=== PATIENT | male | born 1990 | race Caucasian/White ===

== ENCOUNTER 2022-05-10 01:21 | Emergency (ER) | payer BC, SELFPAY ==
--- NOTE | ~2022-05-10 | CT_ITS ---
EXAMINATION: CT ANGIOGRAM OF THE CHEST WITH AND WITHOUT CONTRAST (CT PULMONARY ANGIOGRAM FOR PE) CLINICAL INFORMATION: Reason for Exam left side chest pain COMPARISON: Prior x-ray 05/10/2022 TECHNIQUE: Prior to contrast administration, noncontrast localization images were obtained. Subsequently, multidetector volumetric imaging was performed from the thoracic inlet to below the diaphragms following the administration of 80 mL Omnipaque 350 intravenous contrast. No contrast reaction reported Sagittal, coronal, and MIP oblique sagittal reformatted images were obtained on the CT workstation, uploaded to PACS, and reviewed. This CT examination was performed using dose optimization techniques as appropriate, variously including the following: *Automated exposure control *Adjustment of mA and/or kV according to patient size (this includes techniques or standardized protocols for targeted exams where dose is matched to indication/reason for exam; i.e. extremities or head) *Use of iterative reconstruction technique Total exam dose-length product 340 mGy-cm FINDINGS: QUALITY OF STUDY/CONTRAST BOLUS: Satisfactory. PULMONARY ARTERIES: No central or segmental pulmonary emboli. THORACIC AORTA: No aneurysm or dissection. LUNG: Groundglass opacities present in the lower lobes bilaterally. More dense consolidation in the lingula anteriorly and in the right middle lobe. PLEURA: No pleural effusion or pneumothorax. MEDIASTINUM: Normal heart size. No pericardial effusion. No hilar or mediastinal lymphadenopathy. No evidence of septal bowing or right heart strain. CHEST WALL/AXILLA: No axillary or internal mammary lymphadenopathy. Pectus deformity OSSEOUS STRUCTURES: No acute or suspicious osseous abnormality. UPPER ABDOMEN: Unremarkable. No reflux of contrast into the hepatic veins to suggest elevated right heart pressures. CT/CT angio chest PE protocol IMPRESSION: 1. No evidence for pulmonary embolism. 2. Groundglass opacities in the lower lobes bilaterally with more dense consolidation in the lingula and right middle lobe. Findings are nonspecific but can be seen with pneumonia or combination of pneumonia and atelectasis. 3. VTE: negative.
--- NOTE | ~2022-05-10 | XR_ITS ---
EXAMINATION: XR CHEST CLINICAL INFORMATION: Pain COMPARISON: None TECHNIQUE: 2 views of the chest were obtained. FINDINGS: Lung volumes are symmetric. There is suggestion of some central peribronchial thickening. Minimal patchy opacity is noted towards the left base. No evidence of pneumothorax or pleural effusion. The cardiomediastinal contour is unremarkable. No acute osseous findings are seen. XR/XR chest 2V IMPRESSION: Minimal patchy left basilar opacity may reflect developing consolidation in the proper clinical setting; short-term radiographic follow-up would be helpful.
[2022-05-10 01:26] VITALS: BP 132/73; PULSE 123; RESP 20; TEMP 37.1; O2SAT 97; BMI 26.3
[2022-05-10 01:38] LABS: MANUAL DIFF FLAG NO
[2022-05-10 01:39] LABS: Basophils Absolute Auto 0.1 X10*3/uL (0.0-0.2); Basophils Percent Auto 0.3 % (0-2); Eosinophils Absolute Auto 0.2 X10*3/uL (0.0-0.4); Hematocrit 46.3 % (42.0-52.0); Hemoglobin 15.6 g/dl (14.0-18.0); Imm Gran Abs Auto 0.06 X10*3/uL (0.00-0.03); Imm Gran Pct Auto 0.4 % (0.0-0.4); Lymphocytes Absolute Auto 2.6 X10*3/uL (1.2-4.9); Lymphocytes Percent Auto 15.8 % (20-40); Mean Corpuscular HGB Conc 33.7 g/dl (31.0-36.0); Mean Corpuscular Hemoglobin 29.6 pg (27.0-33.0); Mean Corpuscular Volume 87.9 fL (80.0-98.0); Mean Platelet Volume 9.7 fL (9.4-12.4); Monocytes Absolute Auto 1.2 X10*3/uL (0.1-1.2); Monocytes Percent Auto 7.4 % (2-11); Neutrophils Absolute Auto 12.2 x10*3/uL (2.0-8.3); Neutrophils Percent Auto 75.1 % (45-73); Platelet Count 266 X10*3/uL (160-400); Red Blood Count 5.27 X10*6/uL (4.60-5.80); Red Cell Distribution Width 12.1 % (11.0-16.0); White Blood Count 16.3 X10*3/uL (4.8-10.8)
[2022-05-10 01:56] LABS: Alanine Aminotransferase 19 U/L (0-40); Albumin Level 4.5 g/dL (3.5-5.0); Alkaline Phosphatase 94 U/L (39-117); Anion Gap 17 (12-20); Aspartate Amino Transferase 17 U/L (5-37); Bilirubin Total 0.6 mg/dL (0.0-1.0); Blood Urea Nitrogen 17 mg/dL (9-16); Calcium 9.7 mg/dL (8.4-10.2); Carbon Dioxide 25 mmol/L (22-29); Chloride 102 mmol/L (96-108); Creatinine Clr Calc Pharmacy 109.6; Estimated Glomerular Filt Rate > 60; Glucose Random 111 mg/dL (60-115); Sodium 140 mmol/L (135-145); Total Protein 7.8 g/dL (6.5-8.0)
[2022-05-10 03:56] VITALS: BP 136/79; PULSE 110; RESP 12; TEMP 36.9; O2SAT 97
[2022-05-10 04:36] VITALS: BP 111/83; PULSE 110; RESP 33; TEMP 36.7; O2SAT 97
[2022-05-10 05:44] VITALS: BP 124/77; PULSE 138; RESP 35; TEMP 37; O2SAT 96
[2022-05-10] MEDS: 0.9 % Sodium Chloride 1,000 ML 999 ML IVCONT (06:46)
[2022-05-10 06:47] VITALS: RESP 18
[2022-05-10] MEDS: Morphine Sulfate 4 MG/ML CARTRIDGE IVPUSH (06:47)
[2022-05-10] MEDS: ondansetron HCL 4 MG/2 ML VIAL IVPUSH (06:47)
--- NOTE | 2022-05-10 06:58 | ED_ITS ---
HPI - General Adult General Chief complaint: General Medical Stated complaint: Pain all over left side Time Seen by Provider: 05/10/22 06:36 Source: patient Mode of arrival: ambulatory Limitations: no limitations History of Present Illness HPI narrative: This is a 31 years old male presented to the emergency department with complaining of left side the pleuritic chest pain ongoing for about 2 days. He states that he has no comorbidity denies any fever described like severe left- sided chest pain and is unable to take a deep breath because of that found tachycardic at arrival Onset (ago): day(s) (2) Location: chest (left) Radiation: non-radiation Severity: moderate Quality: aching Pain Consistency: constant Relieving factors: none Exacerbating factors: other (breathing) Associated symptoms: denies other symptoms Related Data Previous Rx's Medication Instructions Recorded doxycycline monohydrate 100 mg 100 mg PO BID #14 caps 05/10/22 capsule ibuprofen 800 mg tablet 800 mg PO Q8H #20 tabs 05/10/22 Allergies Allergy/AdvReac Type Severity Reaction Status Date / Time No Known Allergies Allergy Verified 05/10/22 01:33 Review of Systems Constitutional: Constitutional: Reports no additional constitutional complaints ENT: Reports system reviewed and no additional complaints, except as documented Cardiovascular: Cardiovascular: Reports chest pain Respiratory: Respiratory: Reports no additional respiratory complaints Gastrointestinal: Gastrointestinal: Reports no additional gastrointestinal complaints Neurologic: Reports system reviewed and no additional complaints, except as documented PMFSH Past Medical History [facility], [facility] Narrative: denies Social History Social History Alcohol intake: former Smoked in Last 30 Days: No Use of substances other than those prescribed or required for medical reasons: Yes Substance Use Type: Marijuana Last Used Substance: Hours (ago) Any prior treatment program specific to substance use: Yes Advance Directives: No Advance Directives Information Provided: No Physical Exam ED Vital Signs: Vital Signs - 24 hr 05/10/22 01:26 05/10/22 03:56 05/10/22 04:36 Temperature 98.8 F 98.5 F 98.0 F Pulse Rate 123 H 110 H 110 H Respiratory Rate 20 12 33 H Blood Pressure 132/73 136/79 111/83 Pulse Oximetry 97 97 97 Oxygen Delivery Method Room Air Room Air Room Air 05/10/22 05:44 05/10/22 06:47 05/10/22 08:12 Temperature 98.6 F 98 F Pulse Rate 138 H 89 Respiratory Rate 35 H 18 20 Blood Pressure 124/77 122/81 Pulse Oximetry 96 98 Oxygen Delivery Method Room Air Room Air BMI result Body Mass Index 26.3 Const General: cooperative Nutritional Appearance: average body habitus Orientation/consciousness: patient oriented x3 Limitations: no limitations HENMT Head: Yes normal to inspection General nose exam: Normal external nose present Face and sinus: Yes normal facial exam Mouth: Normal oral and palatal mucosa present Throat: Yes posterior oropharynx normal Neck Neck: Yes normal visual inspection and Yes full ROM Chest Chest palpation & inspection: normal inspection of the chest Resp Effort & Inspection: normal respiratory effort and able to speak in complete sentences Auscultation: rhonchi Cardio Jugular venous distension: no JVD Palpation: normal PMI Rate: regular rate Rhythm: regular rhythm GI Inspection: Yes normal to inspection Palpation (GI): Soft to palpation, not firm, nontender and no guarding General: Yes no CVA tenderness Back/Spine/Pelvis Back: no CVA tenderness Neuro General: patient oriented x3 Course Reevaluation(s) Reevaluation #1: Feels much better at this time after the IV Toradol, his heart rate is much better, is oxygenating well his normotensive, he does have elevated white count, CT shows no PE but pneumonitis. At this point will discharge the patient home on p.o. antibiotic and anti-inflammatory medication. Patient is comfortable with the plan Medical Decision Making Lab Data Result diagrams: 05/10/22 01:35 05/10/22 01:35 Labs: Lab Results 05/10/22 05/10/22 Range/Units 01:35 01:35 WBC 16.3 H (4.8-10.8) X10*3/uL RBC 5.27 (4.60-5.80) X10*6/uL Hgb 15.6 (14.0-18.0) g/dl Hct 46.3 (42.0-52.0) % MCV 87.9 (80.0-98.0) fL MCH 29.6 (27.0-33.0) pg MCHC 33.7 (31.0-36.0) g/dl RDW 12.1 (11.0-16.0) % Plt Count 266 (160-400) X10*3/uL MPV 9.7 (9.4-12.4) fL Immature Gran % (Auto) 0.4 (0.0-0.4) % Neut % (Auto) 75.1 H (45-73) % Lymph % (Auto) 15.8 L (20-40) % [place] % (Auto) 7.4 (2-11) % Eos % (Auto) 1.0 (0-4) % Baso % (Auto) 0.3 (0-2) % Lymph # (Auto) 2.6 (1.2-4.9) X10*3/uL [place] # (Auto) 1.2 (0.1-1.2) X10*3/uL Eos # (Auto) 0.2 (0.0-0.4) X10*3/uL Baso # (Auto) 0.1 (0.0-0.2) X10*3/uL Abs Immat Gran (auto) 0.06 H (0.00-0.03) X10*3/uL Absolute Neuts (auto) 12.2 H (2.0-8.3) x10*3/uL Absolute Nucleated RBC 0.000 (0.0-0.012) X10*3/uL Nucleated RBC % (auto) 0.0 (0.0-0.2) /100WBC Sodium 140 (135-145) mmol/L Potassium 4.0 (3.3-5.1) mmol/L Chloride 102 (96-108) mmol/L Carbon Dioxide 25 (22-29) mmol/L Anion Gap 17 (12-20) BUN 17 H (9-16) mg/dL Creatinine 1.04 (0.5-1.4) mg/dL Estim Creat Clear Calc 109.6 Estimated GFR > 60 Random Glucose 111 (60-115) mg/dL Calcium 9.7 (8.4-10.2) mg/dL Total Bilirubin 0.6 (0.0-1.0) mg/dL AST 17 (5-37) U/L ALT 19 (0-40) U/L Alkaline Phosphatase 94 (39-117) U/L Total Protein 7.8 (6.5-8.0) g/dL Albumin 4.5 (3.5-5.0) g/dL Imaging Data Chest x-ray: Radiologist's impression: COMPARISON: None TECHNIQUE: 2 views of the chest were obtained. FINDINGS: Lung volumes are symmetric. There is suggestion of some central peribronchial thickening. Minimal patchy opacity is noted towards the left base. No evidence of pneumothorax or pleural effusion. The cardiomediastinal contour is unremarkable. No acute osseous findings are seen. XR/XR chest 2V IMPRESSION: Minimal patchy left basilar opacity may reflect developing consolidation in the proper clinical setting; short-term radiographic follow-up would be helpful. ? Dictated By: CT scan - chest: Radiologist's impression: THORACIC AORTA: No aneurysm or dissection. LUNG: Groundglass opacities present in the lower lobes bilaterally. More dense consolidation in the lingula anteriorly and in the right middle lobe. PLEURA: No pleural effusion or pneumothorax. MEDIASTINUM: Normal heart size.? No pericardial effusion.? No hilar or mediastinal lymphadenopathy.? No evidence of septal bowing or right heart strain. CHEST WALL/AXILLA: No axillary or internal mammary lymphadenopathy. Pectus deformity OSSEOUS STRUCTURES: No acute or suspicious osseous abnormality.? UPPER ABDOMEN: Unremarkable.? No reflux of contrast into the hepatic veins to suggest elevated right heart pressures. CT/CT angio chest PE protocol IMPRESSION: 1.? No evidence for pulmonary embolism. 2.? Groundglass opacities in the lower lobes bilaterally with more dense consolidation in the lingula and right middle lobe. Findings are nonspecific but can be seen with pneumonia or combination of pneumonia and atelectasis. ? 3.? VTE: negative. ? ECG Data Attestation: I personally reviewed and interpreted this ECG as follows: Pacemaker model: Normal sinus rhythm rate [address]-T changes Discharge Plan Discharge Clinical Impression: Pneumonia, Pleuritis Patient Disposition: Home, Self-Care Instructions: Pleurisy (ED), Community Acquired Pneumonia (ED) Additional Instructions: Follow-up with your primary care physician, return to the emergency room if you worse vomiting shortness of breath any concern Prescriptions: New doxycycline monohydrate 100 mg capsule 100 mg PO BID Qty: 14 0RF ibuprofen 800 mg tablet 800 mg PO Q8H Qty: 20 0RF Referrals: Jo Ann Noel MD [Primary Care Provider] - 05/12/22 Interventions: ED Discharge Assessment Last Done: 05/10/22 08:43 Discharge Date/Time: 05/10/22 08:44
--- NOTE | 2022-05-10 07:26 | ECG_ITS ---
Test Reason : CHEST PAIN Blood Pressure : / mmHG Vent. Rate : 095 BPM Atrial Rate : 095 BPM P-R Int : 204 ms QRS Dur : 092 ms QT Int : 358 ms P-R-T Axes : 021 065 013 degrees QTc Int : 449 ms Normal sinus rhythm Possible Left atrial enlargement Borderline ECG No previous ECGs available Referred By: Ottoniel Barrett Electronically Signed By:AVILA JASSO MD
[2022-05-10] MEDS: iohexoL 350 MG/ML 100 ML INFUS..BTL IV (07:36)
[2022-05-10] MEDS: Ketorolac Tromethamine 30 MG/ML VIAL IVPUSH (07:47)
--- NOTE | 2022-05-10 08:03 | PC.NURSE ---
Antibiotics started late due to cultures needing to be drawn
[2022-05-10 08:12] VITALS: BP 122/81; PULSE 89; RESP 20; TEMP 36.6; O2SAT 98
[2022-05-10] MEDS: cefTRIAXone sodium 1 GM in 0.9 % Sodium Chloride 50 ML IV (08:15)
== END 2022-05-10 08:44 | disposition home or self-care (01) ==
PROVIDERS: Emergency Provider Emergency Medicine; PCP Internal Medicine
DX: J18.9 Pneumonia, unspecified organism (principal); R09.1 Pleurisy; F12.90 Cannabis use, unspecified, uncomplicated
CPT/HCPCS: 36415; 71046; 71275; 80053; 85025; 87040; 93005; 96374; 96375; 99284; 99285; J0696; J1885; J2270; J2405; Q9967